=== PATIENT | female | born 1945 | race Caucasian/White ===

== ENCOUNTER 2023-03-21 13:42 | Outpatient (CLI) | payer MEDICARE, BC | END 2023-03-21 13:43 | disposition home or self-care (01) | LOC: BICCT 13:42 | PROVIDERS: ATTEND Family Medicine | DX: Z12.2 Encounter for screening for malignant neoplasm of respiratory organs (principal); M81.0 Age-related osteoporosis without current pathological fracture; J43.2 Centrilobular emphysema; I70.90 Unspecified atherosclerosis; Z87.891 Personal history of nicotine dependence | CPT/HCPCS: 71271; 77080 ==

== ENCOUNTER 2025-01-15 14:26 | Outpatient (CLI) | payer MEDICARE | END 2025-01-15 14:27 | disposition home or self-care (01) | LOC: CT 14:26 | PROVIDERS: ATTEND Internal Medicine Hematology & Oncology | DX: Z12.2 Encounter for screening for malignant neoplasm of respiratory organs (principal); D50.0 Iron deficiency anemia secondary to blood loss (chronic); J43.9 Emphysema, unspecified; R91.8 Other nonspecific abnormal finding of lung field; J84.10 Pulmonary fibrosis, unspecified; J98.4 Other disorders of lung; Z87.891 Personal history of nicotine dependence | CPT/HCPCS: 71271 ==

== ENCOUNTER 2025-02-25 13:09 | Outpatient (CLI) | payer MEDICARE | END 2025-02-25 13:10 | disposition home or self-care (01) | LOC: RAD 13:09 | PROVIDERS: ATTEND Internal Medicine | DX: J44.1 Chronic obstructive pulmonary disease with (acute) exacerbation (principal) | CPT/HCPCS: 71046 ==